=== PATIENT | male | born 1960 ===

== ENCOUNTER 2017-03-18 11:21 | Inpatient (IN) | payer MEDICARE, MEDICAID ==
[2017-03-18 12:05] LABS: Hematocrit 44 % (42-52); Hemoglobin 14.3 g/dl (14.0-18.0); Mean Corpuscular HGB Conc 33 g/dl (31-36); Mean Corpuscular Hemoglobin 30 pg (27-31); Mean Corpuscular Volume 92 fL (80-94); Mean Platelet Volume 8 um3 (7.4-10.4); Red Cell Distribution Width 14 % (10.5-15)
--- NOTE | 2017-03-18 12:06 | ED ---
Psychiatric Complaint - HPI Summary HPI Summary: Patient presents to the ED with chief of staff from a respite fci he just arrived at this weekend. He left his previous fci because the patients there are low functioning. He is wanting his own apt and states he will not go back to the fci he is currently at d/t the same reasons. While attempting to talk to him this morning, the RN states he threatened to walk out in front of cars this morning, and this is his baseline for threatening suicide. When speaking with him on PE, he states he will refuse to talk to anyone, get vital signs or change into a gown. It is explained to the patient, he must talk with someone if he wants to go home, but he is continuing to refuse. He denies any physical pain. Denies depression or anxiety, but states he has threatened SI often. Denies self harm, HI, drug use or ETOH. - History Of Current Complaint Hx Obtained From: Patient Onset/Duration: Sudden Onset Timing: Constant Severity Initially: Moderate Severity Currently: Moderate Character: Angry, Frustrated Aggravating Factor(s): Recent Stress Alleviating Factor(s): Nothing Associated Signs And Symptoms: Positive: Hostile, Social Withdrawal, Social Isolation Related History: Positive For: Prior Psychiatric Issues Has Suicidal: Reports: Thoughts - Risk Factor(s) Completed Suicide Risk Factors: Male <Isatu Faulkner - Last Filed: 03/18/17 20:18> <Paula Pinedo - Last Filed: 03/20/17 07:46> - History Of Current Complaint Chief Complaint: EDMentalHealth Time Seen by Provider: 03/18/17 11:51 - Allergies/Home Medications Allergies/Adverse Reactions: Allergies Allergy/AdvReac Type Severity Reaction Status Date / Time Aspirin [ASA] Allergy GI Upset Verified 03/18/17 17:00 Codeine Allergy GI Upset Verified 03/18/17 16:59 Home Medications: Home Medications Cymbalta CAP* 90 mg PO DAILY 03/18/17 [History Confirmed 03/18/17] Divalproex ER TAB(*) [Depakote ER TAB(*)] 750 mg PO QAM 03/18/17 [History Confirmed 03/18/17] Divalproex Sodium [Depakote ER] 500 mg PO SEE INSTRUCTIONS 03/18/17 [History Confirmed 03/18/17] Fluticasone NASAL * 1 spray NASAL DAILY 03/18/17 [History Confirmed 03/18/17] Furosemide [Lasix] 20 mg PO DAILY 03/18/17 [History Confirmed 03/18/17] Levothyroxine TAB* [Synthroid TAB*] 50 mcg PO DAILY 03/18/17 [History Confirmed 03/18/17] Pantoprazole Sodium [Protonix] 40 mg PO DAILY 03/18/17 [History Confirmed ] Polyethylene Glycol 17 gm PO DAILY 03/18/17 [History Confirmed 03/18/17] Simethicone [Gas-X] 160 mg PO PC 03/18/17 [History Confirmed 03/18/17] Tamsulosin HCl [Flomax] 0.4 mg PO DAILY 03/18/17 [History Confirmed 03/18/17] PMH/Surg Hx/FS Hx/Imm Hx Previously Healthy: Yes - Immunization History Hx Pertussis Vaccination: No Immunizations Up to Date: Unable to Obtain/Confirm Infectious Disease History: No Infectious Disease History: Denies: Traveled Outside the [place] in Last 30 Days - Social History Occupation: Unemployed, Disabled Lives: Assisted Living Alcohol Use: None Hx Substance Use: No Substance Use Type: Reports: None Hx Tobacco Use: No Smoking Status (MU): Never Smoked Tobacco <Isatu Faulkner - Last Filed: 03/18/17 20:18> Review of Systems Constitutional: Negative Eyes: Negative Cardiovascular: Negative Respiratory: Negative Positive: no symptoms reported, see HPI Musculoskeletal: Negative Neurological: Negative Positive: Anxious, Other - angry All Other Systems Reviewed And Are Negative: Yes <Isatu Faulkner - Last Filed: 03/18/17 20:18> Physical Exam Triage Information Reviewed: Yes Vital Signs On Initial Exam: Initial Vitals Temp Pulse Resp BP Pulse Ox 98.6 F 76 18 144/78 96 03/18/17 11:51 03/18/17 11:51 03/18/17 11:51 03/18/17 11:51 03/18/17 11:51 Vital Signs Reviewed: Yes Appearance: Positive: Well-Appearing, Well-Nourished Skin: Positive: Warm, Skin Color Reflects Adequate Perfusion Head/Face: Positive: Normal Head/Face Inspection Eyes: Positive: EOMI, LENA, Conjunctiva Clear Neck: Positive: Supple, No Lymphadenopathy Respiratory/Lung Sounds: Positive: Clear to Auscultation, Breath Sounds Present Cardiovascular: Positive: Normal, RRR, Pulses are Symmetrical in both Upper and Lower Extremities Musculoskeletal: Positive: Normal Neurological: Positive: Alert, Oriented to Person Place, Time, Speech Normal Psychiatric: Positive: Anxious, Depressed, Patient Uncooperative for Exam - [place] Coma Scale Coma Scale Total: 15 <Isatu Faulkner - Last Filed: 03/18/17 20:18> Vital Signs On Initial Exam: Initial Vitals Temp Pulse Resp BP Pulse Ox 98.6 F 76 18 144/78 96 03/18/17 11:51 03/18/17 11:51 03/18/17 11:51 03/18/17 11:51 03/18/17 11:51 <Paula Pinedo - Last Filed: 03/20/17 07:46> Diagnostics - Vital Signs Vital Signs Temp Pulse Resp BP Pulse Ox 03/18/17 11:51 98.6 F 76 18 144/78 96 - Laboratory Result Diagrams: 03/18/17 11:45 03/18/17 11:45 Lab Statement: Any lab studies that have been ordered have been reviewed, and results considered in the medical decision making process. <Isatu Faulkner - Last Filed: 03/18/17 20:18> - Vital Signs Vital Signs Temp Pulse Resp BP Pulse Ox 03/18/17 15:38 98.1 F 71 18 148/83 100 03/18/17 15:30 98.1 F 71 18 148/83 100 03/18/17 11:51 98.6 F 76 18 144/78 96 - Laboratory Lab Results: Lab Results 03/18/17 03/18/17 03/18/17 Range/Units 11:40 11:45 11:45 WBC 7.0 (3.5-10.8) 10^3/ul RBC 4.80 (4.0-5.4) 10^6/ul Hgb 14.3 (14.0-18.0) g/dl Hct 44 (42-52) % MCV 92 (80-94) fL MCH 30 (27-31) pg MCHC 33 (31-36) g/dl RDW 14 (10.5-15) % Plt Count 223 (150-450) 10^3/ul MPV 8 (7.4-10.4) um3 Neut % (Auto) 55.1 (38-83) % Lymph % (Auto) 28.9 (25-47) % [place] % (Auto) 10.7 H (1-9) % Eos % (Auto) 4.7 (0-6) % Baso % (Auto) 0.6 (0-2) % Absolute Neuts (auto) 3.8 (1.5-7.7) 10^3/ul Absolute Lymphs (auto) 2.0 (1.0-4.8) 10^3/ul Absolute Monos (auto) 0.7 (0-0.8) 10^3/ul Absolute Eos (auto) 0.3 (0-0.6) 10^3/ul Absolute Basos (auto) 0 (0-0.2) 10^3/ul Absolute Nucleated RBC 0 10^3/ul Nucleated RBC % 0 Sodium 136 (133-145) mmol/L Potassium 4.0 (3.5-5.0) mmol/L Chloride 101 (101-111) mmol/L Carbon Dioxide 32 (22-32) mmol/L Anion Gap 3 (2-11) mmol/L BUN 18 (6-24) mg/dL Creatinine 0.90 (0.67-1.17) mg/dL Est GFR ( Amer) 112.3 (>60) Est GFR (Non-Af Amer) 87.3 (>60) BUN/Creatinine Ratio 20.0 (8-20) Glucose 94 (70-100) mg/dL Hemoglobin A1c (Less than 6.0) % Calcium 10.2 (8.6-10.3) mg/dL Total Bilirubin 0.80 (0.2-1.0) mg/dL AST 31 (13-39) U/L ALT 20 (7-52) U/L Alkaline Phosphatase 79 (34-104) U/L Total Protein 7.7 (6.4-8.9) g/dL Albumin 4.4 (3.2-5.2) g/dL Globulin 3.3 (2-4) g/dL Albumin/Globulin Ratio 1.3 (1-3) Triglycerides 59 mg/dL Cholesterol 146 mg/dL LDL Cholesterol 87 mg/dL HDL Cholesterol 47.5 mg/dL TSH 2.72 (0.34-5.60) mcIU/mL Urine Color Yellow Urine Appearance Clear Urine pH 6.0 (5-9) Ur Specific [place] 1.005 L (1.010-1.030) Urine Protein Negative (Negative) Urine Ketones Negative (Negative) Urine Blood Negative (Negative) Urine Nitrate Negative (Negative) Urine Bilirubin Negative (Negative) Urine Urobilinogen Negative (Negative) Ur Leukocyte Esterase Negative (Negative) Urine Glucose Negative (Negative) Salicylates < 2.50 (<30) mg/dL Urine Opiates Screen (None Detect) Acetaminophen < 15 mcg/mL Ur Barbiturates Screen (None Detect) Valproic Acid 44.0 L (50-100) mcg/mL Ur Phencyclidine Scrn (None Detect) Ur Amphetamines Screen (None Detect) U Benzodiazepines Scrn (None Detect) Urine Cocaine Screen (None Detect) U Cannabinoids Screen (None Detect) Serum Alcohol < 10 (<10) mg/dL 03/18/17 03/18/17 Range/Units 11:45 11:45 WBC (3.5-10.8) 10^3/ul RBC (4.0-5.4) 10^6/ul Hgb (14.0-18.0) g/dl Hct (42-52) % MCV (80-94) fL MCH (27-31) pg MCHC (31-36) g/dl RDW (10.5-15) % Plt Count (150-450) 10^3/ul MPV (7.4-10.4) um3 Neut % (Auto) (38-83) % Lymph % (Auto) (25-47) % [place] % (Auto) (1-9) % Eos % (Auto) (0-6) % Baso % (Auto) (0-2) % Absolute Neuts (auto) (1.5-7.7) 10^3/ul Absolute Lymphs (auto) (1.0-4.8) 10^3/ul Absolute Monos (auto) (0-0.8) 10^3/ul Absolute Eos (auto) (0-0.6) 10^3/ul Absolute Basos (auto) (0-0.2) 10^3/ul Absolute Nucleated RBC 10^3/ul Nucleated RBC % Sodium (133-145) mmol/L Potassium (3.5-5.0) mmol/L Chloride (101-111) mmol/L Carbon Dioxide (22-32) mmol/L Anion Gap (2-11) mmol/L BUN (6-24) mg/dL Creatinine (0.67-1.17) mg/dL Est GFR ( Amer) (>60) Est GFR (Non-Af Amer) (>60) BUN/Creatinine Ratio (8-20) Glucose (70-100) mg/dL Hemoglobin A1c 5.5 (Less than 6.0) % Calcium (8.6-10.3) mg/dL Total Bilirubin (0.2-1.0) mg/dL AST (13-39) U/L ALT (7-52) U/L Alkaline Phosphatase (34-104) U/L Total Protein (6.4-8.9) g/dL Albumin (3.2-5.2) g/dL Globulin (2-4) g/dL Albumin/Globulin Ratio (1-3) Triglycerides mg/dL Cholesterol mg/dL LDL Cholesterol mg/dL HDL Cholesterol mg/dL TSH (0.34-5.60) mcIU/mL Urine Color Urine Appearance Urine pH (5-9) Ur Specific [place] (1.010-1.030) Urine Protein (Negative) Urine Ketones (Negative) Urine Blood (Negative) Urine Nitrate (Negative) Urine Bilirubin (Negative) Urine Urobilinogen (Negative) Ur Leukocyte Esterase (Negative) Urine Glucose (Negative) Salicylates (<30) mg/dL Urine Opiates Screen None detected (None Detect) Acetaminophen mcg/mL Ur Barbiturates Screen None detected (None Detect) Valproic Acid (50-100) mcg/mL Ur Phencyclidine Scrn None detected (None Detect) Ur Amphetamines Screen None detected (None Detect) U Benzodiazepines Scrn None detected (None Detect) Urine Cocaine Screen None detected (None Detect) U Cannabinoids Screen None detected (None Detect) Serum Alcohol (<10) mg/dL Result Diagrams: 03/18/17 11:45 03/18/17 11:45 Lab Statement: Any lab studies that have been ordered have been reviewed, and results considered in the medical decision making process. <Paula Pinedo - Last Filed: 03/20/17 07:46> Course/Dx - Course Course Of Treatment: Patient alert and oriented x 3. He is upset on arrival and is refusing to change into a gown, talk to someone or allow the RN to obtain VS. He is upset that he is unable to live by himself in an apt and must stay at a fci. He stated this morning he wanted to step in front of cars to committ suicide, and the policy is for him to come to the hospital for evaluation. - Differential Dx/Clinical Impression Differential Diagnosis/HQI/PQRI: Positive: Acute Psychosis, Bipolar Disorder, Suicide Attempt, Suicidal Ideation, Suicidal Gesture <Isatu Faulkner - Last Filed: 03/18/17 20:18> <Paula Pinedo - Last Filed: 03/20/17 07:46> - Differential Dx/Clinical Impression Provider Diagnosis: Suicidal ideations Discharge <Isatu Faulkner - Last Filed: 03/18/17 20:18> <Paula Pinedo - Last Filed: 03/20/17 07:46> - Discharge Plan Condition: Stable Disposition: ADMITTED TO [facility] Attestation Statement User Type: Provider - I was available for consult. This patient was seen by the OSKAR. The patient was not presented to, seen by, or examined by me. -Skyler <Paula Pinedo - Last Filed: 03/20/17 07:46>
[2017-03-18 12:08] LABS: Urine Bilirubin Negative (Negative); Urine Glucose Negative (Negative); Urine Nitrite Negative (Negative)
[2017-03-18 12:19] LABS: ALT 20 U/L (7-52); AST 31 U/L (13-39); Albumin 4.4 g/dL (3.2-5.2); Alkaline Phosphatase 79 U/L (34-104); Anion Gap 3 mmol/L (2-11); Blood Urea Nitrogen 18 mg/dL (6-24); CO2 Carbon Dioxide 32 mmol/L (22-32); Calcium 10.2 mg/dL (8.6-10.3); Chloride 101 mmol/L (101-111); EGFR African American 112.3 (>60); EGFR Non-African American 87.3 (>60); Globulin 3.3 g/dL (2-4); Glucose 94 mg/dL (70-100); Sodium 136 mmol/L (133-145); Total Protein 7.7 g/dL (6.4-8.9)
[2017-03-18 12:31] LABS: Benzodiazepine Urine Screen None Detected (None Detect)
[2017-03-18 12:50] LABS: TSH (Thyroid Stimulating Horm) 2.72 mcIU/mL (0.34-5.60)
[2017-03-18 12:54] LABS: Acetaminophen < 15 mcg/mL; Alcohol < 10 mg/dL (<10); Salicylate < 2.50 mg/dL (<30)
[2017-03-18] MEDS ORDERED: Nicotine Inhaler* 10 MG AMP INH PRN (13:38)
[2017-03-18] MEDS ORDERED: Haloperidol TAB* 5 MG PO PRN (14:12)
[2017-03-18] MEDS ORDERED: LORazepam TAB(*) 1 MG PO PRN (14:13)
[2017-03-18] MEDS ORDERED: Acetaminophen TAB* 325 MG PO ONE (15:24)
[2017-03-18 18:24] VITALS: BP 128/95
[2017-03-18] MEDS: Furosemide TAB* 20 MG PO SCH (19:05)
[2017-03-18 19:28] LABS: Cholesterol 146 mg/dL; HDL Cholesterol 47.5 mg/dL; LDL Cholesterol 87 mg/dL; Triglycerides 59 mg/dL
[2017-03-18] MEDS: Divalproex ER TAB(*) 500 MG PO SCH (19:30)
[2017-03-18] MEDS: Simethicone CHEW TAB* 80 MG PO SCH (19:30)
[2017-03-18] MEDS: Tamsulosin CAP* 0.4 MG PO SCH (19:30)
[2017-03-19] MEDS: Levothyroxine TAB* 50 MCG TAB PO SCH (07:15)
[2017-03-19] MEDS: Simethicone CHEW TAB* 80 MG PO SCH ×3 (08:26→17:58)
[2017-03-19] MEDS: Omeprazole CAP* 20 MG PO SCH (08:26)
[2017-03-19] MEDS: Divalproex ER TAB(*) 250 MG PO SCH (08:27)
[2017-03-19] MEDS: DULoxetine DR CAP* 30 MG CAP.DR PO SCH (08:28)
[2017-03-19] MEDS: Furosemide TAB* 20 MG PO SCH (08:29)
[2017-03-19] MEDS: Tamsulosin CAP* 0.4 MG PO SCH (08:31)
[2017-03-19] MEDS: Polyethylene Glycol 3350* 17 GM PACKET PO SCH (08:32)
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
[2017-03-19] MEDS: Divalproex ER TAB(*) 500 MG PO SCH (20:16)
--- NOTE | 2017-03-19 20:41 | HP ---
PSYCHIATRIC HISTORY AND PHYSICAL: DATE OF ADMISSION: 03/18/17 JUSTIFICATION FOR ADMISSION: The patient is in need of 24-hour supervision and care secondary to suicidal ideations. CHIEF COMPLAINT: "I am not going back to that usp." HISTORY OF PRESENT ILLNESS: Mr. Estevez is a 56-year-old single white male with a history of mild intellectual disability, who lives in a state sponsored usp for developmentally disordered clans, who is taken to the hospital from the [facility], where he was receiving respite services over the weekend due to suicidal ideations with the plan to walk out into traffic. My understanding is that the patient has had multiple recent hospitalizations including [facility] and [facility] for similar complaints. He is a poor historian and so I am relying on his residential providers for a great deal of information. My understanding is that he is initially from [place], [place], which is in [facility] and he was somehow able to live independently until the age of 49. The patient then was placed in an [facility] in [place] because he could no longer live on his own. He would often act out there insisting that he wanted to live by himself in his own apartment and eventually, he walked out of that facility resulting in a hospitalization at [facility] in [place], [place]. Thereafter, in August of 2016, he was transferred to the residential longterm called [facility], which is in [place], [place] . Apparently, this is a total longterm setting meaning that many of his peers are extremely low functioning, nonverbal, and totally reliant on staff assistance for ADLs. Because of this, the patient feels that he has no peers and no socialization other than hanging out with staff members. He has consistently complained about this placement and will often sign himself out and be found on the streets and taken home. He had a recent hospitalization at [facility] and he continued to make suicidal statements to the effect that he would kill himself if taken back to the [facility] setting. For this reason after his insurance ran out, [facility] discharged him to the [facility] respite facility here in [facility]. The date of his intake there was on 03/15/17. That facility only holds people for an extremely short period. They made it clear that it was time for him to return to [facility] on 03/18/17, and this is when he became suicidal resulting in them calling the ambulance to have him brought here for evaluation. At this time, he is continuing to state that he is suicidal. It is notable that on our unit, we observed him laughing and joking with peers. He is calm and cooperative and does not appear to have psychosis or to be responding to internal stimuli, but when you bring up subject of returning to his usp, he immediately insists that he is suicidal. When I asked him if he would be suicidal if being placed in a prison or some other independent residential setting, he responds that he would not be suicidal. I did try to contact his Medicaid service coordinator, a woman named Amaris Schultz, who is not available for comment. PAST PSYCHIATRIC HISTORY: The patient has been hospitalized in at least 2 psychiatric facilities for threat and suicide; those include [facility] and [facility]. He claims that he has attempted to jump in front of traffic in the past, although this cannot be confirmed. He denies violence towards others. His standing diagnosis is mild intellectual disability. PAST MEDICAL HISTORY: He has been diagnosed with gastroesophageal reflux disease, benign prostatic hypertrophy, edema, and hypothyroidism. CURRENT MEDICATIONS: Include: 1. Cymbalta 90 mg p.o. daily. 2. Depakote 750 mg in the morning and 500 mg in the evening. 3. Furosemide 20 mg daily. 4. Synthroid 50 mcg p.o. daily. 5. Omeprazole 20 mg p.o. daily. 6. He takes polyethylene glycol once daily for constipation. 7. Tamsulosin 0.4 mg p.o. daily. ALLERGIES: He is allergic to ASPIRIN and CODEINE. FAMILY HISTORY: Noncontributory. SOCIAL HISTORY: The patient was born and raised in [place]. His mother is and he states that he never knew his father. He does have one brother and sister. He has not spoken with his brother for years, but he occasionally speaks to his sister on the phone. He states that he has never been , but he refuses to answer questions about whether or not he has children. Most recently, he has been residing in the [facility] in [place], [place]. 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 He also used to abuse tobacco, but quit this in his 20s. REVIEW OF SYSTEMS: The patient denies headache or double vision. He denies sore throat, cough, chest pain, or difficulty breathing. He denies abdominal pain, nausea, vomiting, diarrhea, or constipation. He denies difficulty ambulating, enlarged lymph nodes, rashes, or change in weight. PHYSICAL EXAMINATION VITAL SIGNS: Blood pressure 128/95, heart rate 88, respiratory rate 18, oxygen saturations are 98% on room air. HEENT: Head is normocephalic, atraumatic. NECK: Supple. CHEST: Clear to auscultation bilaterally. CARDIAC: Exam reveals normal heart sounds. ABDOMEN: Soft and nontender. MUSCULOSKELETAL: Exam reveals no sign of edema. NEUROLOGICAL: He is grossly intact. SKIN: Warm and dry. MENTAL STATUS EXAM: The patient is a middle-aged, white male, who appears to have some dysmorphic features consistent with his developmental pathology. He is clean and well-groomed, wearing street clothes. He walks with a walker. Eye contact is fair. He is calm, cooperative, expressive. Mood is euthymic with a full affect. Thought process is linear and goal directed. Thought content is significant for his desire to get his own apartment in the community. He denies suicidal or homicidal ideations, but states that he would become suicidal if forced to return to the [facility]. Cognitively, he is awake and alert with what would appear to be a low intellect by virtue of his developmental disorder history. LABORATORY DATA: Complete blood count is within normal limits as is a complete metabolic panel. Hemoglobin A1c normal at 5.5. TSH is normal at 2.72. Urinalysis is within normal limits. Urine drug screen is negative for all substances tested including alcohol. His valproic acid level is low at 44.0. DIAGNOSES: Lilly I: Impulse control disorder, not otherwise specified. Lilly II: Mild intellectual disability. Lilly III: Gastroesophageal reflux disease, chronic constipation, benign prostatic hypertrophy, edema, and hypothyroidism. Lilly IV: Severe housing stressors. Lilly V: At this time is 45. IMPRESSION: The patient is a 56-year-old single white male with a history of developmental delay, who was brought in by the [facility], where he has been staying over the weekend due to suicidal ideations voiced when they told him he was returning to his usp in [facility]. The patient feels that this is an inappropriate placement for him and he would like to be more independent; however, staff at his facility states that he does require assistance with ADLs , hence they state that he would be unsafe returning to an independent lifestyle. PLAN: The patient is admitted to the adult behavioral health unit, placed on q.15- minute checks for his own safety. I have continued his Cymbalta and Depakote. I have placed a telephone message to his Medicaid service coordinator. At this point, I do not think there is much we can do for the patient given the fact that, no matter how long we keep him, he will inevitably endorse suicidal thinking when it is clear that he needs to return to the [facility]. It is likely that we will be contacting his care providers and discharging him tomorrow. [id number]/[facility] #: [id number] ОЛЕГ
[2017-03-19] MEDS ORDERED: ARIPiprazole TAB* 5 MG PO SCH (21:00)
[2017-03-20] MEDS: Levothyroxine TAB* 50 MCG TAB PO SCH (06:25)
[2017-03-20] MEDS: Omeprazole CAP* 20 MG PO SCH (06:25)
[2017-03-20] MEDS: Simethicone CHEW TAB* 80 MG PO SCH ×2 (10:02→12:23)
[2017-03-20] MEDS: DULoxetine DR CAP* 30 MG CAP.DR PO SCH (10:02)
[2017-03-20] MEDS: Furosemide TAB* 20 MG PO SCH (10:04)
[2017-03-20] MEDS: Divalproex ER TAB(*) 250 MG PO SCH (10:04)
[2017-03-20] MEDS: Tamsulosin CAP* 0.4 MG PO SCH (10:04)
[2017-03-20] MEDS: Polyethylene Glycol 3350* 17 GM PACKET PO SCH (10:05)
--- NOTE | 2017-03-20 15:12 | DS ---
DATE OF ADMISSION: 03/18/2017. DATE OF DISCHARGE: 03/20/2017. DISCHARGE DIAGNOSES: AXIS I: Impulse control disorder, not otherwise specified. AXIS II: Mild intellectual disability. AXIS III: Gastroesophageal reflux disease, chronic constipation, benign prostatic hypertrophy, edema, and hypothyroidism. AXIS IV: Severe, housing stressors. AXIS V: At the time of admission was 45 and at the time of discharge is 55. CONDITION AT THE TIME OF DISCHARGE: Improved. The patient is denying suicidal ideations. He states as long as his caregivers work with him to find alternative placement in [facility], that he has no intention of harming himself at all. I will say that this is a somewhat manipulative way of interacting with treatment providers; however, he has been safe on all checks and it is clear at this point that he is not likely warranting treatment in such a restrictive setting. The patient is compliant with all of his medications. He is observed on our unit smiling, joking with peers, appearing to have a bright affect. We do not feel that his threats represent true suicidality in as much as they are a manipulative way for him to get a change in his housing status. We have contacted his registered nurse hh case manager through the developmental disabilities organization which provides his housing and they are in agreement with the discharge plan. He has treatment and follow-up resources in [facility] and we feel it is best for him to return to that area at this time. MENTAL STATUS EXAM AT THE TIME OF DISCHARGE: Deon is a middle-aged, white male who appears to be somewhat dysmorphic consistent with his developmental pathology. He is clean and well-groomed, wearing street clothes, walking with a walker. Eye contact is fair. He is calm, cooperative, expressive. Mood is euthymic with a full and bright affect. Thought process is linear and goal- directed. Thought content is significant for his desire to get his own apartment and be more independent in the community. He is denying suicidal or homicidal ideations, but continues to state that he would threaten suicidal actions if he was forced to return to the [facility] residence. Cognitively , he is awake and alert with what would appear to be a low intellect by virtue of his developmental disorder history. DISCHARGE INSTRUCTIONS TO THE PATIENT: A. Medications: He is on Cymbalta 90 mg p.o. daily, Depakote ER 750 mg in the morning and 500 mg in the evening, Furosemide 20 mg p.o. daily, Synthroid 50 mcg p.o. daily, Omeprazole 20 mg p.o. daily, takes Polyethylene Glycol once daily for constipation, and Tamsulosin 0.4 mg p.o. daily. B. Diet: Regular. C. Activities: As tolerated. The patient is a nonsmoker. There are no diagnostic or laboratory studies pending at the time of discharge. D. Follow-up care: The patient will follow-up at the [facility] in [facility] which specializes in developmental disorders treatment. His follow -up will be within two weeks of discharge. HOSPITAL COURSE - PART A: Reason for admission: The patient is a 56-year-old, single, white male with a history of mild intellectual disability who lives in a state sponsored shelter for developmentally disordered clients, who is taken to the hospital from the [facility] where he was receiving respite services over the weekend due to suicidal ideations with a plan to walk into traffic. My understanding is that the patient has had multiple recent hospitalizations, including [facility] and [facility] for similar complaints. He is a poor historian and so I am relying on his residential providers for a great deal of his information. My further understanding is that he is from [place], [place], which is in [facility] and he was somehow able to live independently until the age of 49. The patient then was placed in an [facility] in [place] because he could no longer live on his own. He would often act out, insisting that he was capable of living on his own and eventually he walked out of that facility, resulting in a hospitalization at [facility] in [place], [place]. Thereafter, in August of 2016, he was transferred to the residential care facility called [facility], which is in [place], [place]. Apparently, this is a total fpc setting, meaning that many of his peers are extremely low functioning, nonverbal, and totally reliant on staff for assistance with ADL's. Because of this, the patient feels that he has no peers to socialization with other than hanging out with staff members. He has consistently complained about this placement and will often sign himself out, only to be found in the streets and returned home. He had a recent hospitalization at [facility] and he continued to make suicidal statements to the effect that he would kill himself if taken back to [facility]. For this reason, after his insurance ran out, [facility] discharged him to the [facility] facility here in [facility]. The date of his intake there was on 03/15/2017. That facility only holds people for an extremely short period of time. The date of his intake there was on March 15. They made it clear that it was time for him to return to the [facility] residence on March 18, and this is when he became suicidal, resulting in them calling an ambulance to have him brought here for an evaluation. At this time, he is continuing to state that he is suicidal. It is notable that on our unit we observe him laughing and joking with peers. He is calm and cooperative and does not appear to have psychosis or to be responding to internal stimuli, but when you bring up the subject of returning to his shelter, he immediately insists that he is suicidal. When I asked him if he would be suicidal if placed in a prison or some other independent residential setting, he responds that he would not be suicidal. I did try to contact his Medicaid service coordinator, a woman named Amaris Schultz, but was unsuccessful at the time of admission. HOSPITAL COURSE - PART B: Psychiatric treatment rendered: The patient was admitted to the Adult Behavioral Health Unit where he was placed on q.15 minute checks for his own safety. We immediately resumed all medications, including Duloxetine and Depakote, which are his psychiatric mood stabilizers. He was calm and cooperative throughout, was notably social, laughing and smiling, and he was safe on all checks. He continued to insist, however, that if we made him go back to the [facility] residence, that his suicidal ideations would resume. We were able to reach out and contact Amaris Schultz, who indicated that she was aware of his housing preferences and she was working on getting him re- placed within [facility]. Under these circumstances, I did not feel that prolonged hospitalization would do him any good since his suicidal ideations were limited strictly to his housing preferences. For this reason, we decided to discharge him back to his caregivers at the [facility] for them to figure an alternative plan for his housing. He will be arriving to their care through Medicaid transportation. The patient is aware of this. He continues to deny suicidal ideations at this time and we certainly wish him the best for a healthy and successful future. [id number]/[facility] #: [id number] ОЛЕГ
== END 2017-03-20 16:30 | DRG 886 ==
LOC: ED 11:21 → BSU 15:42
PROVIDERS: ADMIT Psychiatry & Neurology Psychiatry; ATTEND Psychiatry & Neurology Psychiatry
DX: F63.9 Impulse disorder, unspecified (principal); F33.3 Major depressive disorder, recurrent, severe with psychotic symptoms; R45.851 Suicidal ideations; F70 Mild intellectual disabilities; K21.9 Gastro-esophageal reflux disease without esophagitis; K59.09 Other constipation; N40.0 Benign prostatic hyperplasia without lower urinary tract symptoms; E03.9 Hypothyroidism, unspecified; Z62.810 Personal history of physical and sexual abuse in childhood; E66.9 Obesity, unspecified; R40.2412 Glasgow coma scale score 13-15, at arrival to emergency department; R60.9 Edema, unspecified; Z88.5 Allergy status to narcotic agent; Z88.8 Allergy status to other drugs, medicaments and biological substances; Z87.891 Personal history of nicotine dependence; Z87.898 Personal history of other specified conditions; Z68.42 Body mass index [BMI] 45.0-49.9, adult; Z91.5 Personal history of self-harm; Z56.0 Unemployment, unspecified
CPT/HCPCS: 36415; 80053; 80061; 80164; 80307; 80320; 80329; 81003; 83036; 84443; 85025; 99222; 99238; A9270-GY; G0480